=== PATIENT | female | born 1970 | race Caucasian/White ===

== ENCOUNTER 2021-04-22 19:13 | Emergency (ER) | payer OTHER ==
[~2021-04-22 19:13] MED LIST: BACTRIM DS TAB1 EACH PO; CYCLOBENZAPRINE10 MG PO; ETODOLAC500 MG PO; FLAGYL250 MG PO; IBUPROFEN600 MG PO; LEVOTHROID 0.0.15 MG PO; PERCOCET 5-3251 EACH PO
[2021-04-22 20:35] LABS: BASOPHIL 0.1 % (0-2); EOSINOPHIL 0.6 % (0-5); HGB 13.2 g/dl (12.5-16.0); LYMPHOCYTE 10.6 % (15-48); MCH 31.4 pg (25.0-31.0); MCV 95.2 fL (78.0-100.0); MONOCYTE 10.4 % (0-12); MPV 10.3 fL (6.0-9.5); NRBC 0; PLT 239 K/uL (150-400); WBC 13.6 K/uL (4.0-10.5)
[2021-04-22 20:49] LABS: ALBUMIN 3.7 g/dL (3.4-5.0); BILIRUBIN - TOTAL 1.4 mg/dL (0.2-1.0); BUN/CREAT RATIO (CALC) 26.3 RATIO; CREATININE 0.76 mg/dL (0.51-0.95); GLOBULIN (CALCULATION) 3.6 g/dL; POTASSIUM 4.2 mmol/L (3.5-5.1); TOTAL PROTEIN 7.3 g/dL (6.4-8.2)
[2021-04-22 21:11] LABS: BILIRUBIN NEGATIVE (NEGATIVE); BLOOD 1+ Ery/uL (NEGATIVE); CLARITY CLEAR (CLEAR); COLOR YELLOW (YELLOW); GLUCOSE (U) NORMAL (NORMAL); LEUKOCYTES 1+ Leu/uL (NEGATIVE); NITRITE NEGATIVE (NEGATIVE); PROTEIN NEGATIVE (NEGATIVE); SPECIFIC GRAVITY 1.025 (1.001-1.030); UROBILINOGEN 0.2 mg/dL (0.2-1.0); pH 6.5 (5.0-9.0)
[2021-04-22 21:22] LABS: BACTERIA TRACE
[2021-04-22 21:58] LABS: LACTIC ACID 1.9 mmol/L (0.4-1.9)
[2021-04-22] MEDS ORDERED: FLAGYL500 MG PO (22:58)
[2021-04-22] MEDS ORDERED: CIPRO500 MG PO (22:58)
[2021-04-22] MEDS ORDERED: NORCO 5-325 TA1 EACH PO (22:58)
[2021-04-22] MEDS ORDERED: ZOFRAN4 M1 PO (22:58)
== END 2021-04-22 23:39 | disposition home or self-care (01) ==
LOC: FER 19:13
PROVIDERS: Internal Medicine; Nurse Practitioner Family
DX: K57.32 Diverticulitis of large intestine without perforation or abscess without bleeding (principal); Z88.0 Allergy status to penicillin
CPT/HCPCS: 36415; 80053; 81001; 83605; 83690; 84145; 85025; 87088; J1885; J7030; Q9967